=== PATIENT | male | born 1970 | race Caucasian/White ===

== ENCOUNTER 2018-04-13 03:29 | Emergency (ER) | payer SELFPAY ==
[2018-04-13] MEDS ORDERED: Ondansetron HCl/PF 4 MG/2 ML Vial ONE (03:56)
[2018-04-13] MEDS ORDERED: Labetalol HCl 100 MG/20 ML VIAL ONE (03:56)
[2018-04-13 04:40] LABS: #Basophils 0.1 thou/uL (0.0-0.2); #Eosinphils 0.3 thou/uL (0.0-0.7); #Lymphocytes 2.4 thou/uL (1.20-3.40); %Basophils 1.2 % (0.0-1.0); %Eosinophils 3.5 % (0.0-10.0); %Lymphocytes 27.4 % (21.0-51.0); %Monocytes 11.2 % (0.0-10.0); %Neutrophils 56.7 % (42.0-75.0); Hemoglobin 14.4 g/dL (14.0-18.0); Mean Corpuscular HGB CONC 34.9 g/dL (32.0-36.0); Mean Corpuscular Hemoglobin 30.4 pg (27.0-31.0); Mean Platelet Volume 6.4 fL (7.4-10.4); Platelet Count 259 thou/uL (130-400); Red Blood Cell (RBC) Count 4.75 mill/uL (4.70-6.10); White Blood Cell (WBC) Count 8.8 thou/uL (4.8-10.8)
[2018-04-13 04:58] LABS: ALT (SGPT) 37 U/L (8-55); AST (SGOT) 32 U/L (5-34); Albumin 4.3 g/dL (3.5-5.0); Alkaline Phosphatase 88 U/L (40-150); Anion Gap 20 mmol/L (10-20); BUN (Urea Nitrogen) 27 mg/dL (8.9-20.6); Bilirubin, Total 0.5 mg/dL (0.2-1.2); CK (CPK) 657 U/L (30-200); Calc. Creatinine Clearance 0 mL/min (70-130); Calcium 9.1 mg/dL (7.8-10.44); Carbon Dioxide 22 mmol/L (22-29); Chloride 107 mmol/L (98-107); Estimated GFR-MDRD 54; Globulin 3.1 g/dL (2.4-3.5); Glucose 138 mg/dL (70-105); Lipase 31 U/L (8-78); Potassium 3.6 mmol/L (3.5-5.1); Protein, Total 7.4 g/dL (6.0-8.3); Sodium 145 mmol/L (136-145); Troponin I Less than 0.010 ng/mL (< 0.028)
[2018-04-13 05:06] LABS: CKMB 7.3 ng/mL (0-6.6)
[2018-04-13 05:27] LABS: Bilirubin Negative (Negative); Blood, Urine Small (Negative); Glucose, Urine (Dipstick) 100 mg/dL (Negative); Leukocyte Small (Negative); Nitrite Positive (Negative); Protein, Urine (Dipstick) Negative (Neg-Trace); Urobilinogen 0.2 mg/dL (0.2-1.0); pH, Urine 6.5 (5.0-9.0)
[2018-04-13 05:30] LABS: Clarity Hazy (Clear)
[2018-04-13 05:32] LABS: Bacteria/HPF 4+ HPF (None Seen); Squamous Epithelial 0-3 HPF (0-3); WBC/HPF 21-50 HPF (0-3)
[2018-04-13 05:36] LABS: Amphetamine Detected (NotDetected); Barbiturates Screen Not Detected (NotDetected); Benzodiazepine Screen Not Detected (NotDetected); Cocaine Metabolite Screen Not Detected (NotDetected); Medtox Control Line Valid? VALID (VALID); Methadone Not Detected (NotDetected); Methamphetamine Not Detected (NotDetected); Opiate Screen Not Detected (NotDetected); Oxycodone Screen Not Detected (NotDetected); Phencyclidine (PCP) Not Detected (NotDetected); THC/Cannabinoid Screen Not Detected (NotDetected); Tricyclic Screen Not Detected (NotDetected)
[2018-04-13] MEDS ORDERED: Ondansetron ODT 4 MG TAB ONE (06:08)
[2018-04-13] MEDS ORDERED: Sodium Chloride 0.9% 1,000 ML BAG ONE (07:20)
--- NOTE | 2018-04-13 08:39 | CT ---
PRELIMINARY REPORT/[facility]/EMERGENTY AFTER-HOURS PROCEDURE CT Head Without Intravenous Contrast CLINICAL HISTORY: 48 years old, male; Pain; complaining of ears ringing and headache. TECHNIQUE: Axial computed tomography images of the head/brain without intravenous contrast. All CT scans at this facility use at least one of these dose optimization techniques: automated exposure control; Ma and/ or kV adjustment per patient size (includes targeted exams where dose is matched to clinical indication); or iterative reconstruction. COMPARISON: No relevant prior studies available. FINDINGS: Brain: A few scattered small areas of decreased density in the periventricular white matter which are likely secondary to chronic ischemia from microvascular change or demyelination white matter disease . 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 Diffuse cerebral atrophy. No mass effect or midline shift. No e xtra-axial fluid collection. No hemorrhage. Ventricles: Ventricular prominence in this patient with diffuse cerebral atrophy. Bones/joints: No acute fracture. Old fracture medial wall left orbit. Soft tissues: Unremarkable. Sinuses: Partial ethmoid sinusitis. Mastoid air cells: No mastoiditis. IMPRESSION: 1. No acute intracranial findings. 2. A few scattered small areas of decreased density in the periventricular white matter which are lik luis alberto secondary to chronic ischemia from microvascular change or demyelination white matter disease. 3. 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 Thank you for allowing us to participate in the care of your patient. Dictated and Authenticated by: Theodore Cramer MD 04/13/2018 5:00 AM Central Time ([place] & [place]) FINAL REPORT EMERGENT AFTER HOURS CT BRAIN WITHOUT CONTRAST: FINDINGS/IMPRESSION: I agree with the findings and impression given in the preliminary report per [facility] physician. Small- vessel ischemic disease without acute intracranial abnormality. POS: [facility]
[2018-04-16 00:49] LABS: Chlamydia by PCR Not Detected (NotDetected); GC by PCR Not Detected (NotDetected)
== END 2018-04-13 06:15 | disposition home or self-care (01) ==
LOC: MADERS 03:29
DX: N39.0 Urinary tract infection, site not specified (principal); I10 Essential (primary) hypertension; E66.9 Obesity, unspecified
CPT/HCPCS: 36416; 70450; 80053; 80306; 81003; 81015; 82150; 82553; 83690; 83880; 84484; 85025; 87491; 87591; 93005; 94760; 96361; 96374; 96375; J2405; J7050; Q0162

== ENCOUNTER 2018-10-17 16:54 | Emergency (ER) | payer SELFPAY ==
[2018-10-17 17:26] LABS: Bilirubin Negative (Negative); Blood, Urine Large (Negative); Clarity Cloudy (Clear); Glucose, Urine (Dipstick) Negative (Negative); Leukocyte Small (Negative); Nitrite Negative (Negative); Protein, Urine (Dipstick) 100 mg/dL (Neg-Trace); Urobilinogen 0.2 mg/dL (0.2-1.0)
[2018-10-17 17:35] LABS: Bacteria/HPF Rare-Few HPF (None Seen); Squamous Epithelial 0-3 HPF (0-3)
[2018-10-17 17:36] LABS: Specific Gravity, Urine 1.027 (1.002-1.036)
[2018-10-17] MEDS ORDERED: Cephalexin 500 MG CAP ONE (18:14)
[2018-10-17] MEDS ORDERED: Erythromycin Base 0.5% Ophth Oint 3.5 gm Tube ONE (18:14)
== END 2018-10-17 19:01 | disposition home or self-care (01) ==
LOC: MADERS 16:54
DX: N39.0 Urinary tract infection, site not specified (principal); H10.89 Other conjunctivitis; I10 Essential (primary) hypertension; E66.9 Obesity, unspecified; Z79.899 Other long term (current) drug therapy
CPT/HCPCS: 81003; 81015; 87086; 87804; 99283

== ENCOUNTER 2020-08-11 01:29 | Emergency (ER) | payer SELFPAY ==
[2020-08-11] MEDS ORDERED: Ondansetron ODT 4 MG TAB ONE (01:57)
[2020-08-11 02:34] LABS: Blood, Urine Large (Negative); Clarity Turbid (Clear); Leukocyte Small (Negative); Specific Gravity, Urine 1.025 (1.005-1.030)
[2020-08-11 02:38] LABS: Bilirubin Unable to Interpret (Negative); Glucose, Urine (Dipstick) Unable to Interpret mg/dL (Negative); Ketone, Urine Unable to Interpret mg/dL (Negative); Nitrite Unable to Interpret (Negative); Protein, Urine (Dipstick) Unable to Interpret mg/dL (Neg-Trace); Urobilinogen UNABLE TO INTERPRET mg/dL (Less than 2)
[2020-08-11 02:39] LABS: Bacteria/HPF 3+ HPF (None Seen); RBC/HPF Greater than 50 HPF (0-3); Squamous Epithelial 0-3 HPF (0-3)
[2020-08-11] MEDS ORDERED: Acetaminophen 500 MG TAB ONE (02:43)
[2020-08-11] MEDS ORDERED: cefTRIAXone\\ROCEPHIN 2 GM VIAL ONE (03:01)
[2020-08-11] MEDS ORDERED: Sodium Chloride 0.9% 100 ML ONE (03:01)
[2020-08-11] MEDS ORDERED: Sodium Chloride 0.9% 1,000 ML ONE (03:01)
[2020-08-11] MEDS ORDERED: Ketorolac Tromethamine 30 MG/ML VIAL ONE (03:01)
[2020-08-11 03:35] LABS: Anion Gap 19 mmol/L (10-20); BUN (Urea Nitrogen) 28 mg/dL (8.4-25.7); Calc. Creatinine Clearance 0 mL/min (70-130); Calcium 8.7 mg/dL (7.8-10.44); Carbon Dioxide 26 mmol/L (22-29); Chloride 99 mmol/L (98-107); Estimated GFR-MDRD 47; Glucose 111 mg/dL (70-105); Potassium 3.4 mmol/L (3.5-5.1); Sodium 141 mmol/L (136-145)
[2020-08-11 03:49] LABS: Band 7 % (5-11); Hemoglobin 15.3 g/dL (14.0-18.0); Lymphocytes 32 % (21-51); MDiff Complete? YES; Mean Corpuscular HGB CONC 33.7 g/dL (32.0-36.0); Mean Corpuscular Hemoglobin 30.7 pg (27.0-31.0); Mean Corpuscular Volume 90.9 fL (78.0-98.0); Mean Platelet Volume 6.4 fL (7.4-10.4); Monocytes 6 % (0-10); Neutrophil 48 % (42-75); Platelet Count 226 thou/uL (130-400); Platelet Morphology Comment Appears Adequate; RBC Distribution Width 11.4 % (11.5-14.5); RBC Morphology Normal; Reactive Lymphocytes 7 % (0-10); Red Blood Cell (RBC) Count 4.98 mill/uL (4.70-6.10); White Blood Cell (WBC) Count 1.3 thou/uL (4.8-10.8)
[2020-08-11] MEDS ORDERED: Sodium Chloride 0.9% 2,000 ML ONE (05:47)
--- NOTE | 2020-08-11 07:40 | CT ---
PRELIMINARY REPORT/[facility]/EMERGENCY AFTER HOURS PROCEDURE: EXAM: CT Abdomen and Pelvis Without Intravenous Contrast CLINICAL HISTORY: FEVER, BLOOD IN URIN, PT VERY IN LOTS OF PAIN. COULD NOT HOLD STEEL. TECHNIQUE: Axial computed tomography images of the abdomen and pelvis without intravenous contrast. CONTRAST: None. COMPARISON: None provided. FINDINGS: LUNG BASES: Linear atelectasis in the lingula. Coronary artery calcifications are present. LIVER: Unremarkable. GALLBLADDER AND BILE DUCTS: Unremarkable. No calcified stone. No ductal dilation. PANCREAS: Fatty atrophy of the pancreas. SPLEEN: Unremarkable. ADRENAL GLANDS: Unremarkable. KIDNEYS, URETERS, AND BLADDER: No nephrolithiasis or hydronephrosis. Mural thickening of the urinary bladder for which correlation with urinalysis is recommended. STOMACH AND BOWEL: No obstruction. No wall thickening. No CT evidence of colitis or acute diverticuli tis. APPENDIX: No CT evidence for appendicitis. PERITONEUM: No free fluid. No free air. LYMPH NODES: No lymphadenopathy. REPRODUCTIVE: Unremarkable as visualized. VASCULATURE: No aortic aneurysm. ABDOMINAL WALL AND SOFT TISSUES: Small bilateral fat containing inguinal hernias. BONES: No fracture or suspicious osseous abnormality. MISCELLANEOUS: Posterior fat-containing diaphragmatic hernia containing fat. Multiple images are degraded by motion artifact. IMPRESSION: Multiple images are degraded by motion artifact. Mural thickening of the urinary bladder for which correlation with urinalysis is recommended. ELECTRONICALLY SIGNED BY: Maria Elena Sullivan MD Aug 11, 2020 4:24:36 AM CDT FINAL REPORT ABDOMEN CT WITHOUT CONTRAST PELVIC CT WITHOUT CONTRAST: HISTORY: Hematuria. Fever. COMPARISON: None. FINDINGS: Abdomen CT: Lung bases:Clear posterior right-sided diaphragmatic hernia with adjacent atelectasis. Heart size: Normal heart size. Aorta: Normal caliber. Solid organs: Limited evaluation due to technique. Grossly no solid organ abnormality. Lymph nodes: No gastrohepatic, retrocrural or periportal lymphadenopathy Gallbladder: Contracted. Mesentery: No mass, lymphadenopathy, free air or free fluid. Kidneys: Bilaterally, no hydronephrosis, nephrolithiasis or perinephric fat stranding. Bilateral uret ers have a normal caliber. No hydroureter, periureteral fat stranding or ureterolithiasis. Alimentary canal: Limited evaluation due to technique. No bowel obstruction. CT PELVIS: No mass, adenopathy, free air or free fluid. Urinary bladder: Prominent, likely due to inadequate distention. Correlate for cystitis. Osseous structures: No lytic or blastic lesions. IMPRESSION: 1. This report is in agreement with initial report by [facility]. 2. No evidence of obstructive uropathy. 3. Mucosal thickening the bladder, likely due to inadequate distention. Correlate for cystitis. Transcribed Date/Time: 08/11/2020 8:15 AM
== END 2020-08-11 04:40 | disposition short-term general hospital (02) ==
LOC: MADERS 01:29
DX: A41.9 Sepsis, unspecified organism (principal); N12 Tubulo-interstitial nephritis, not specified as acute or chronic; R65.21 Severe sepsis with septic shock; I10 Essential (primary) hypertension; E66.9 Obesity, unspecified
CPT/HCPCS: 36415; 74176; 80048; 81003; 81015; 83605; 85025; 85060; 87040; 87077; 87086; 87149; 87186; 96365; 96368; 96375; J0696; J1885; J1956; J3490; J7050; Q0162